=== PATIENT | female | born 1940 | race Caucasian/White ===

== ENCOUNTER → 2017-01-31 | Outpatient (CLI) | payer MEDICARE ==
[~2017-01-31] MED LIST: ASPEC325 PO; ATOR-24 PO; CALCTAB5 PO; FSMD/70 PO; MULT-506 PO; SYN100 PO; cranberry PO
[2017-01-31 13:48] VITALS: BP 139/72; PULSE 70; TEMP 36.7; O2SAT 96
--- NOTE | 2017-01-31 16:12 | Radiation Oncology Follow-Up ---
Radiation Oncology Follow-Up Date of Visit Jan 31, 2017. Reason For Visit Annual follow-up Radiation Completion Date 06/06/12 (3 HDR's) Diagnosis (1) Malignant neoplasm of other specified sites of body of uterus Status: Resolved Onset Date: 03/13/2012 Stage: l (B) Permanent Comment: Postmenopausal vaginal bleeding Status post endometrial biopsy revealing endometrial carcinoma Status post laparoscopic hysterectomy with lymph node sampling, pathologic stage [id number] FIGO grade 2 Status post completion of radiation therapy 06/06/2012 received 2100 cGy using HDR therapy. Last Edited By: Jackelyn Joyce on Jan 21, 2015 17:35 Interim History She's been doing well over this past year. She denies any problems with vaginal discharge or irritation. She does have perineal irritation which is caused by urinary incontinence and maceration. Last year we discussed using Aquaphor. She has been using Vaseline. She feel this does help. She stated that the cream might given her previously did help and in reviewing the records this was Mycolog-II. She does use the vaginal dilator periodically. She follows with gynecology and did have a normal Pap smear. She has now completed 5 years posttreatment evaluation and request to follow with gynecology only at this point. She'll be seen on a annual basis. Allergies Coded Allergies: No Known Allergies (Unverified , 10/26/11) Home Medications Scheduled Alendronate/Cholecalciferol (Fosamax+D 70MG/2800 Iu), 1 TABLET PO WK Aspirin (Aspirin *), 325 MG PO DAILY Atorvastatin (Lipitor), 1 TAB PO HS Calcium (Caltrate), 600 MG PO BID Levothyroxine (Synthroid *), 100 MCG PO DAILY Multivitamin (Multivitamin), 1 TAB PO DAILY [cranberry], 1 TAB PO DAILY Review of Systems Gastrointestinal: Symptoms: WNL Oral: Symptoms: No Problems Respiratory: Symptoms: WNL Urinary: Symptoms: WNL Skin: Symptoms: No Problems Physical Exam Vital Signs Date Time Temp Pulse Resp B/P (MAP) Pulse Ox O2 Delivery O2 Flow Rate FiO2 01/31/17 13:48 36.7 70 16 139/72 96 Fatigue: None General Appearance: no apparent distress Eyes: normal inspection, PERRL ENT: normal ENT inspection, hearing grossly normal Neck: no adenopathy, thyroid normal Respiratory/Chest: lungs clear, no respiratory distress, no accessory muscle use Cardiovascular: regular rate, rhythm, no gallop, no murmur Abdomen: non tender, soft, no organomegaly Genitourinary - Female: External genitalia reveals mild erythema. Improved compared to last year. There are no visible or palpable lesions. Vaginal examination reveals no vaginal discharge or irritation. She has foreshortening of the vagina. There are no visible or palpable lesions. Bimanual examination reveals no areas of tenderness. Anal / Rectum: Normal sphincter tone. No rectal masses and no rectal bleeding. Additional Studies Name: GASTON SMILEY Age/Sex: 75/F Location: [facility] MR#: [id number] : 1940 Rm/Bed Physician: Noah Wheeler M.D. Case: [id number] Received 12/23/15 Specimen Date 12/22/15 Specimen: VAGINAL THIN PREP LMP HYSTER GYNECOLOGICAL RESULTS DIAGNOSIS: Negative for intraepithelial Lesion or Malignancy ADEQUACY OF THE SPECIMEN: Satisfactory for evaluation AUTOMATED EXAMINATION: This specimen was successfully imaged by the [employer], [employer], [facility]. QC REVIEW BY: LUCRECIA THOMPSON, [facility] COPIES TO Noah Wheeler M.D. Balabanova-Tsarnakova, RV., MD Signed 12/28/15 [facility] Plan: Continue annual examinations and Pap smears through gynecology. Prescription was given for Mycolog-II cream. She can have this refilled as needed through primary care or gynecology. A follow-up appointment with our office was not given. She may call if she has any questions or concerns we'll be happy to see her. Total Time In Follow-Up I spent 20 minutes speaking to the patient and performing examination. I spent 15 minutes reviewing information in completing this note. Copy To RV. Clark MD; Noah Wheeler M.D.
== END | disposition home or self-care (01) ==
LOC: C.ONC 13:39
PROVIDERS: ATTEND Physician Assistant Medical
DX: Z08 Encounter for follow-up examination after completed treatment for malignant neoplasm (principal); Z92.3 Personal history of irradiation; Z85.42 Personal history of malignant neoplasm of other parts of uterus

== ENCOUNTER → 2017-02-14 | Outpatient (CLI) | payer MEDICARE ==
[2017-02-14 14:39] LABS: HEMATOCRIT 44.6 % (37-47); MEAN CELL VOLUME 101.1 fL (80-100); MEAN CORPUSCULAR HEMOGLOBIN 33.1 pg (25-34); MEAN CORPUSCULAR HGB CONC 32.7 g/dl (32-36); MEAN PLATELET VOLUME 9.5 fL (7.4-10.4); PLATELET COUNT 256 K/uL (130-400); RED BLOOD COUNT 4.41 M/uL (4.2-5.4); WHITE BLOOD COUNT 6.69 K/uL (4.8-10.8)
[2017-02-14 15:02] LABS: ALT/SGPT 25 U/L (12-78); AST/SGOT 18 U/L (15-37); BLOOD UREA NITROGEN 14 mg/dl (7-18); BUN/CREATININE RATIO 11.6 (10-20); CALCIUM 9.1 mg/dl (8.5-10.1); CARBON DIOXIDE 28 mmol/L (21-32); CHLORIDE 107 mmol/L (98-107); GLUCOSE 103 mg/dl (70-99); POTASSIUM 4.3 mmol/L (3.5-5.1); SODIUM 141 mmol/L (136-145)
[2017-02-14 15:13] LABS: ALKALINE PHOSPHATASE 70 U/L (45-117); CHOLESTEROL 195 mg/dl (0-200); HDL CHOLESTEROL 49 mg/dl; LDL CHOLESTEROL CALCULATED 105 mg/dl; TRIGLYCERIDES 205 mg/dl (0-150); VERY LOW DENSITY LIPOPROT CALC 41 mg/dl
[2017-02-14 16:06] LABS: BASO ABS # 0.06 K/uL (0-0.2); BASOPHIL % 0.9 %; COMPLETE YES; EOSINOPHIL % 5.2 %; LARGE GRANULAR LYMPH ABSOLUTE 1.45 K/uL; LARGE GRANULAR LYMPHOCYTE % 21.7 %; LYMPH ABS # 1.98 K/uL (1.2-3.4); LYMPHOCYTE % 29.6 %; NEUTROPHILS % 36.5 %
== END | disposition home or self-care (01) ==
LOC: C.LAB1850 13:25
PROVIDERS: ATTEND Internal Medicine
DX: E03.9 Hypothyroidism, unspecified (principal); E78.5 Hyperlipidemia, unspecified; M81.0 Age-related osteoporosis without current pathological fracture; R00.2 Palpitations